=== PATIENT | male | born 1950 | race Caucasian/White ===

== ENCOUNTER 2020-09-10 17:34 | Emergency (ER) | payer BC, MEDICARE ==
--- NOTE | 2020-09-10 18:43 | EDM.PDOC ---
ED HPI GENERAL MEDICAL PROBLEM - General Chief Complaint: Laceration Stated Complaint: LACERATION ON FINGER Time Seen by Provider: 09/10/20 18:35 Source of Information: Reports: Patient History Limitations: Reports: No Limitations - History of Present Illness INITIAL COMMENTS - FREE TEXT/NARRATIVE: 70 year old male presenting with a finger laceration. Patient reports he got his finger caught on a boat lift and sustained a laceration to the dorsum of the left second digit at the PIP joint. This occurred about 2 hours prior to arrival. No numbness, tingling, or weakness. He denies much pain. Tetanus is up to date. left index finger Pain Score (Numeric/FACES): 1 - Related Data Allergies Allergy/AdvReac Type Severity Reaction Status Date / Time No Known Allergies Allergy Verified 09/10/20 18:25 Home Meds: Home Meds Aspirin 81 mg PO DAILY 09/10/20 [History] Calcium Carbonate [Calcium] 2 mg PO DAILY 09/10/20 [History] Cholecalciferol (Vitamin D3) [Vitamin D3] 1,000 unit PO DAILY 09/10/20 [History] Gabapentin [Neurontin] 900 mg PO TID 09/10/20 [History] Lutein 6 mg PO DAILY 09/10/20 [History] Simvastatin 20 mg PO DAILY 09/10/20 [History] glipiZIDE [Glipizide ER] 20 mg PO DAILY 09/10/20 [History] lisinopriL [Lisinopril] 5 mg PO DAILY 09/10/20 [History] metFORMIN [Glucophage] 1,000 mg PO BIDMEALS 09/10/20 [History] Past Medical History Cardiovascular History: Reports: High Cholesterol, Hypertension Neurological History: Reports: Neuropathy, Diabetic Endocrine/Metabolic History: Reports: Diabetes, Type II Oncologic (Cancer) History: Reports: Prostate - Past Surgical History HEENT Surgical History: Reports: Cataract Surgery Male Surgical History: Reports: Prostatectomy Musculoskeletal Surgical History: Reports: Carpal Tunnel, Hip Replacement Social & Family History - Family History Family Medical History: No Pertinent Family History - Tobacco Use Tobacco Use Status *Q: Never Tobacco User - Recreational Drug Use Recreational Drug Use: No ED ROS GENERAL - Review of Systems Review Of Systems: Comprehensive ROS is negative, except as noted in HPI. ED EXAM, SKIN/RASH Exam: See Below Exam Limited By: No Limitations General Appearance: Alert, No Apparent Distress Head: Atraumatic, Normocephalic Neck: Full Range of Motion Respiratory/Chest: No Respiratory Distress, No Accessory Muscle Use Extremities: Normal Range of Motion Neurological: Alert, Oriented, CN II-XII Intact, Normal Cognition Psychiatric: Normal Affect, Normal Mood Skin: Warm, Dry, Other (2 cm curvilinear flap laceration to the dorsum of the left second digit at the PIP joint. Flex/ext intact. 2 point discrimination intact. normal capillary refill. no bony tenderness. ) ED SKIN PROCEDURES - Laceration/Wound Repair Left Digit - 2nd (Index) Appearance: Subcutaneous Distal NVT: Neuro & Vascular Intact, No Tendon Injury Anesthetic Type: Digital Local Anesthesia - Lidocaine (Xylocaine): 1% Plain Local Anesthetic Volume: 3cc Skin Prep: Isopropyl Alcohol (Alcohol) Exploration/Debridement/Repair: Wound Explored, No Foreign Material Found Closed with: Sutures Lac/Wound length In cm: 2 Suture Size: 4-0 # of Sutures: 4 Suture Type: Nylon Tetanus Status Addressed: Yes Complications: No Course - Vital Signs Last Recorded V/S: Last Vital Signs Temp 97.1 F 09/10/20 18:30 Pulse 68 09/10/20 18:30 Resp 12 09/10/20 18:30 BP 122/98 H 09/10/20 18:30 Pulse Ox 98 09/10/20 18:30 - Orders/Labs/Meds Meds: Medications Discontinued Medications Generic Name Dose Route Start Last Admin Trade Name Jose Alfredo PRN Reason Stop Dose Admin Lidocaine HCl 5 ml 09/10/20 18:37 09/10/20 19:00 Lidocaine 1% 5 Ml Sdv INJECT 09/10/20 18:38 5 ml ONETIME ONE Administration Departure - Departure Time of Disposition: 19:22 Disposition: Home, Self-Care 01 Condition: Good Clinical Impression: Laceration of finger of left hand - Discharge Information Instructions: Laceration Care, Adult Referrals: PCP,None [Primary Care Provider] - Forms: ED Department Discharge Additional Instructions: Keep the laceration clean and dry. You can apply a thin layer of antibiotic ointment to the laceration and cover with a bandage. Watch for redness, swelling, increased pain, or drainage and return for evaluation if any of those develop. Otherwise follow up in ~10 days for suture removal. Sepsis Event Note (ED) - Evaluation Sepsis Screening Result: No Definite Risk - Focused Exam Vital Signs: Vital Signs Temp Pulse Resp BP Pulse Ox 09/10/20 18:30 97.1 F 68 12 122/98 H 98 - Problem List Review Problem List Initiated/Reviewed/Updated: Yes - Assessment/Plan Assessment:: This is a 70 year old male presenting with a left second finger laceration. There is no bony tenderness and suspicion for associated fracture or foreign body is low so imaging is not indicated. He is neurovascularly intact and there is no evidence of tendon injury on exam. The wound was anesthetized via digital block and extensively irrigated and explored. There is no evidence of foreign body. The laceration was repaired with sutures. A dressing was placed. Wound care instructions were discussed. Tetanus is up to date. He will follow up in 10 days for suture removal.
== END 2020-09-10 19:39 | disposition home or self-care (01) ==
LOC: JP.ED 17:34
DX: S61.211A Laceration without foreign body of left index finger without damage to nail, initial encounter (principal); E78.00 Pure hypercholesterolemia, unspecified; I10 Essential (primary) hypertension; E11.40 Type 2 diabetes mellitus with diabetic neuropathy, unspecified; Z79.84 Long term (current) use of oral hypoglycemic drugs; Z79.82 Long term (current) use of aspirin; Z79.899 Other long term (current) drug therapy; W23.0XXA Caught, crushed, jammed, or pinched between moving objects, initial encounter
CPT/HCPCS: 12001; 99282-25